=== PATIENT | male | born 1965 | race Caucasian/White ===

== ENCOUNTER 2018-06-01 10:52 | Observation (INO) ==
[2018-06-01 12:32] LABS: Prothrombin Time 10.3 sec (9.8-11.6)
[2018-06-01] MEDS: Sod Chloride 0.9% Inj 1,000 ML IV.SIG SCH (13:05)
[2018-06-01] MEDS ORDERED: Chlorhexidine Gluconate 2% 1 Pack (2 Cloths) TOPICAL ONE (13:15)
[2018-06-01] MEDS ORDERED: Sodium Chlor 0.9% Inj 500 ML IV.CONT ONE (13:15)
[2018-06-01] MEDS ORDERED: Metoprolol Tartrate 25 MG Tablet PO ONE (13:15)
[2018-06-01] MEDS ORDERED: Vancomycin Inj 1,000 MG in Sodium Chlor 0.9% Inj 250 ML IV.SIG SCH (14:00)
[2018-06-01] MEDS ORDERED: Bupivacaine/Epinephrine PF Inj 0.5% 30 ML Vial ONE (14:53)
[2018-06-01] MEDS ORDERED: Thrombin Topical Soln 5,000 UNIT Vial TOPICAL ONE (14:54)
[2018-06-01] MEDS ORDERED: Gelatin Size 100 Topical Foam ONE (14:54)
[2018-06-01] MEDS ORDERED: Lidocaine 1% Inj 50 ML Vial ONE (14:54)
[2018-06-01] MEDS ORDERED: ceFAZolin 2 GM Premix Inj 2 GM/50 ML PIGGYBACK IV.SIG ONE (15:34)
[2018-06-01] MEDS ORDERED: Neostigmine Inj 5 MG/5 ML Syringe IV.PUSH ONE (15:39)
[2018-06-01] MEDS ORDERED: Lidocaine PF 1% Inj 5 ML Syringe OTHER ONE (15:39)
[2018-06-01] MEDS ORDERED: Phenylephrine/NS 1000 MCG/10ML Syringe IV.PUSH ONE (15:39)
[2018-06-01] MEDS ORDERED: Glycopyrrolate Inj 1 MG/5 ML Syringe IV.PUSH ONE (15:39)
[2018-06-01] MEDS ORDERED: Sodium Chlor 0.9% Inj 250 ML IV.CONT ONE (15:39)
[2018-06-01] MEDS ORDERED: Acetaminophen 325 MG Tablet PO PRN (17:47)
[2018-06-01] MEDS ORDERED: Bisacodyl 10 MG Supp RECTAL PRN ×2 (17:47)
--- NOTE | 2018-06-01 18:03 | P.OP ---
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 He has associated left sided dorsiflexion weakness and concordant disc at left l4/5. Discectomy is indicated. Description of procedure: Patient was brought to main OR and the procedure was done under general. She was placed in prone and all pressure points padded. Mid lumbar spine was clipped, then prepped and draped in the usual sterile fashion. Fluoroscopy was used to plan an incision centered around the L4/5 interval. This was infiltrated, then carried sharply down to spinous process of L4 and L5. Subperiosteal left dissection was carried down to the lamina. Microscope was brought into the field. Drill was used to thin the inferior left L4 lamina and medial L4/5 left facet. This bone was thinned and removed. Ligamentum flavum removed with curette and Kerrison rongeurs. Exiting nerve root identified and retracted medially with thecal sac. A bulging disc was noted here at the left L4/5 disc interval and this was opened sharply with 11-blade and disc material removed under pressure. After completing the discectomy the exiting nerve root was probed free. Wound copiously irrigated with antibiotic irrigation. Thrombin gelfoam placed over exposed nerve root and closed in layers with interrupted 0-Vicryl for deep fascia, inverted 3-0 Vicryl for subcutaneous and monocril and dermabond for skin. Sterile dressings applied. EBL 50cc. There were no periprocedural complications, all sponge and needle counts were correct.
[2018-06-01] MEDS ORDERED: *morphine SULFATE 10 MG/ML PERIprocedure ONLY ONE ×2 (18:20→18:27)
[2018-06-01] MEDS ORDERED: Morphine Inj 4 MG/ML Vial ONE ×2 (18:21→18:22)
[2018-06-01] MEDS ORDERED: fentaNYL Citrate Inj 100 MCG/2 ML Ampul ONE (18:22)
[2018-06-01] MEDS ORDERED: *HYDROmorphone PF Inj 1 MG/ML Ampul PERIprocedural Use ONLY ONE (18:39)
--- NOTE | 2018-06-01 18:59 | XR ---
EXAM DATE: 06/01/2018 6:50 PM EST AGE/SEX: 52 years / Male INDICATIONS: Level localization for lumbar laminectomy, L4-5. CLINICAL DATA: This is the patient's initial encounter. Patient reports that signs and symptoms have been present for 1 day and indicates a pain score of Nonresponsive. MEDICAL/SURGICAL HISTORY: Non-responsive. Non-responsive. COMPARISON: No prior exams available for comparison. FINDINGS: A single magnified C-arm spot view is a lateral projection overlying the lumbar spine. Magnified stat e does not allow me to accurately measure the levels. There is a metallic probe projecting through th e dorsal soft tissues projecting towards the posterior elements between 2 vertebral body levels possi delia relating to L4-L5. CONCLUSION: Limited image as detailed above. Electronically signed by: Arie Chacon MD Board Certified Radiologist 06/01/2018 6:58 PM EST
[2018-06-01] MEDS: Senna/Docusate Sodium 8.6/50 MG Tablet PO SCH (20:20)
[2018-06-01] MEDS ORDERED: Senna/Docusate Sodium 8.6/50 MG Tablet PO SCH (21:00)
[2018-06-01] MEDS ORDERED: Temazepam 15 MG Capsule PO PRN (21:11)
[2018-06-01] MEDS: Morphine Sulfate Inj 2 MG/ML Vial IV.PUSH PRN ×2 (21:11→23:32)
[2018-06-01] MEDS: ceFAZolin 2 GM Premix Inj 2 GM/50 ML PIGGYBACK IV.SIG SCH (23:31)
[2018-06-02] MEDS: Morphine Sulfate Inj 2 MG/ML Vial IV.PUSH PRN ×2 (03:08→06:05)
[2018-06-02] MEDS: ceFAZolin 2 GM Premix Inj 2 GM/50 ML PIGGYBACK IV.SIG SCH ×2 (08:23→15:20)
[2018-06-02] MEDS: Senna/Docusate Sodium 8.6/50 MG Tablet PO SCH (08:32)
--- NOTE | 2018-06-02 11:25 | P.DS ---
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 He has associated left sided dorsiflexion weakness and concordant disc at left l4/5. Discectomy is indicated. DS: Medications - Discharge Medications Prescriptions: cyclobenzaprine 10 mg PO Q8H PRN #90 tab PRN Reason: Muscle Spasm DS: Summary Hospital Course: Mr. Olmedo underwent a Left L4/5 Microdiscectomy for Lumbar radiculopathy on . His surgery went well without complications. He has stable neurological exam with residual left radicular discomfort. He is mobilizing. He has no bowel or bladder incontinence. He will be discharged home today in stable conditions. - Time Spent with Patient Total time spent providing and/or coordinating discharge services: Less than 30 minutes - Quality: VTE Deep Vein Thrombosis/Pulmonary Embolism Present on Admission: No Exam Vital signs: Vital Signs 06/01/18 11:59 06/01/18 18:06 06/01/18 18:15 Temperature 98.2 F 98 F Pulse Rate 89 88 84 Respiratory Rate 20 14 12 Blood Pressure 152/91 H 159/77 H 154/80 H Pulse Oximetry 97 95 94 L 06/01/18 18:30 06/01/18 18:45 06/01/18 20:35 Temperature 97.7 F Pulse Rate 78 68 70 Respiratory Rate 20 12 20 Blood Pressure 153/88 H 138/72 130/72 Pulse Oximetry 97 95 98 06/02/18 00:02 06/02/18 00:35 06/02/18 04:05 Temperature 97.9 F Pulse Rate 78 Respiratory Rate 16 20 16 Blood Pressure 135/64 Pulse Oximetry 96 06/02/18 04:40 06/02/18 08:08 Temperature 97.4 F L 97.9 F Pulse Rate 66 68 Respiratory Rate 20 18 Blood Pressure 110/56 L 133/75 Pulse Oximetry 96 95 Intake & Output 06/01/18 06/02/18 06/02/18 18:59 06:59 18:59 Intake Total 1750 / 1750 650 / 650 50 / 50 Balance 1750 / 1750 650 / 650 50 / 50 Weight 113.9 kg 114.3 kg Intake: IV 50 / 50 50 / 50 Ancef 2 GM Premix Inj 2 gm In 50 / 50 50 / 50 50 ml @ 100 mls/hr IV.SIG Q8H BRENDA Rx#:[id number] Oral 600 / 600 Anesthesia Amount 1750 / 1750 Other: # Voids 3 Weight On Admission 113.9 kg Results Procedures completed during hospitalization: Left L4/5 Microdiscectomy Labs on day of discharge: Labs from last 24 hours 06/01/18 06/01/18 17:36 11:55 PT 10.3 INR 1.0 POC Glucose 197 H - Impressions ITS Impressions Lumbar Spine X-Ray 06/01/18 00:00 CONCLUSION: Limited image as detailed above. Discharge Plan - Physicians Team Primary Care Provider: Vinod Whipple Attending Provider: Hilario Barone - Rxs /Orders / Referrals /Forms Prescriptions: New cyclobenzaprine 10 mg Tablet 10 mg PO Q8H PRN (Reason: Muscle Spasm) Qty: 90 RF: 0 Continue glipizide 2.5 mg Tablet Extended Release 24hr 2.5 mg PO DAILY lisinopril 5 mg Tablet 5 mg PO DAILY metformin 500 mg Tablet 500 mg PO BID tamsulosin [Flomax] 0.4 mg Capsule 0.4 mg PO DAILY
[2018-06-02] MEDS: Sod Chloride 0.9% Inj 1,000 ML IV.SIG SCH (13:31)
[2018-06-03] MEDS ORDERED: Lisinopril 5 MG Tablet PO SCH (09:00)
[2018-06-03] MEDS ORDERED: glipiZIDE 5 MG Tablet PO SCH (09:00)
== END 2018-06-02 16:33 | disposition home or self-care (01) ==
LOC: HSDI 10:52 → HSDC 10:52 → N05 19:04
PROVIDERS: ADMIT Neurological Surgery; ATTEND Neurological Surgery
DX: I10 Essential (primary) hypertension; E11.9 Type 2 diabetes mellitus without complications; M51.16 Intervertebral disc disorders with radiculopathy, lumbar region; Z79.84 Long term (current) use of oral hypoglycemic drugs
CPT/HCPCS: 72020; 76000; 82948; 82962; 85610; 94150; 96365; 96366; 96375; 96376; G0378; J0131; J0690; J1100; J1170; J1580; J2250; J2270; J2370; J2405; J2704; J2710; J3010; J3370; J3480; J7050; J7120